=== PATIENT | female | born 1965 | race Caucasian/White ===

== ENCOUNTER → 2016-10-08 | Outpatient (CLI) | payer OTHER | END | disposition home or self-care (01) | LOC: LAB.O 08:19 | PROVIDERS: ATTEND Surgery | DX: R53.83 Other fatigue (principal); R53.81 Other malaise; R12 Heartburn; R06.02 Shortness of breath; R60.9 Edema, unspecified; K64.9 Unspecified hemorrhoids ==

== ENCOUNTER → 2017-01-12 | Outpatient (CLI) | payer OTHER | LOC: LAB.O 07:38 | PROVIDERS: ATTEND Surgery | DX: E56.9 Vitamin deficiency, unspecified (principal); R53.83 Other fatigue; R53.81 Other malaise; R12 Heartburn; R06.02 Shortness of breath; R60.9 Edema, unspecified; F32.9 Major depressive disorder, single episode, unspecified; K64.9 Unspecified hemorrhoids; E78.00 Pure hypercholesterolemia, unspecified; I10 Essential (primary) hypertension; E78.1 Pure hyperglyceridemia; I83.90 Asymptomatic varicose veins of unspecified lower extremity; M54.9 Dorsalgia, unspecified; E11.65 Type 2 diabetes mellitus with hyperglycemia; G47.9 Sleep disorder, unspecified ==

== ENCOUNTER 2017-04-26 11:30 | Inpatient (IN) | payer OTHER ==
--- NOTE | 2017-04-26 11:43 | HP ---
SUPERVISING PHYSICIAN: bAa Galeana M.D. CHIEF COMPLAINT: Worsening dyspnea with upper respiratory infection. HISTORY OF PRESENT ILLNESS: Ms. Borja is a 51 year-old female patient that has been having an upper respiratory infection to include fever, worsening shortness of breath and weakness that started this past Wednesday. She noted that she had a subjective fever of up to 102 yesterday and [facility], and was started on a Z-Sergey, given a Rocephin shot and steroids. She presented to Dr. Craig's office today and was showing worsening of her symptoms with worsening shortness of breath, increasing cough that was productive with purulent sputum, generalized weakness and wheezing. Laboratory studies on admission showed a normal white count of 6, 300. Chemistries showed low potassium 2.9. Liver functions were within normal limits. Kidney function showed creatinine 0.51, BUN 10. Urinalysis was within normal limits. She had an Influenza swab by PCR that was both negative for A and B as well as a Group A Strep by PCR that was negative. Radiographic studies initially included a two view chest per radiology interpretation showed possible developing right lower lobe pneumonia. Given that the patient had failed to respond to any significant treatment plan, including antibiotics and steroids, after being seen in clinic Dr. Craig requested the patient be admitted to the hospital for ongoing treatment with concerns for developing pneumonia possibly secondary to an underlying viral infection. She is now being directly admitted to the Medical/Surgical floor in stable condition. PAST MEDICAL HISTORY: 1. Hypertension. 2. Psoriasis. PAST SURGICAL HISTORY: 1. Gastric sleeve in July 2016 with an 80 pound weight loss. 2. Laparoscopic cholecystectomy in 1997. 3. section times 1 in 1996. 4. Hysterectomy in 1998. 5. Bladder suspension in 2006. 6. Appendectomy. 7. Hiatal and inguinal hernias. HOME MEDICATIONS: No chronic medications listed. ALLERGIES: CLOBETASOL AND ATORVASTATIN. FAMILY HISTORY: Positive for renal carcinoma in her father. SOCIAL HISTORY: The patient works for [employer]. She is and lives in [place]. Has 2 children. Denies any alcohol use but was a previous smoker but quit in 2017 prior to her gastric sleeve procedure, was smoking up to a pack a day. REVIEW OF SYSTEMS: CONSTITUTIONAL: Notable for chills, fever and fatigue, but denies any unintentional weight loss. HEENT: Positive for some nasal congestion, nasal drainage, increasing sinus pressure. No ear aches. Mild sore throat. RESPIRATORY: As per History of Present Illness, positive for worsening cough with purulent sputum and increasing shortness of breath and wheezing. CARDIOVASCULAR: Denies any chest pains, palpitations, syncopal episodes. GASTROINTESTINAL: Negative for any constipation, diarrhea, nausea or vomiting. GENITOURINARY: Denies any dysuria, hematuria or other urinary symptoms. NEUROLOGIC: Denies any ataxia, headaches, vision changes or other neurological deficits. PHYSICAL EXAMINATION: VITAL SIGNS: On admission, temperature 98.2, pulse 67, blood pressure 133/83, respirations 16, satting 100% on room air. In the clinic, she was showing temperature initially of 99.4 and has taken some Tylenol with O2 saturations 98 % on room air. She notes that she has had a fever in the last 24 hours up to 102. GENERAL: On admission to the Medical/Surgical floor, the patient appears to be disheveled, ill-appearing, tired and somewhat anxious and tearful, but well developed and well nourished. HEENT: Tympanic membranes are clear bilaterally. Oropharynx was pink and moist without any lesions. NECK: Supple, non-tender with full range of motion. No jugular venous distention. CHEST: Breath sounds were notably decreased on the right with very faint rhonchi heard to the posterolateral aspect on the right with the right being decreased compared to the left, but no obvious wheezing was noted. CARDIOVASCULAR: Regular rate and rhythm without appreciable murmurs, gallops, or rubs. ABDOMEN: Soft, non-tender. Positive bowel sounds. EXTREMITIES: No clubbing, cyanosis or edema. NEUROLOGIC: She was alert and oriented times three. Cranial nerves II-XII are grossly intact with facial features being symmetrical. Extraocular movements are within normal limits. No notable nystagmus. LABORATORY STUDIES: CBC of 6,000 with white count 6,300, hemoglobin 14.5, hematocrit 42.9, platelet count 147,000. Differential showed to be without a left shift. Chemistries showed a low potassium of 2.9, otherwise electrolytes were within normal limits. BUN is 10, creatinine 0.51, glucose 81, lactic acid initially was 1.5, magnesium level was 1.9. Liver functions showed to be within normal limits. Urinalysis showed to be within normal limits. MICROBIOLOGY: She had a Group A Strep rapid screen that was negative. She also had an Influenza A and B by PCR that was both negative. Blood cultures are pending. Sputum culture is pending. RADIOLOGY: Two view chest in the clinic prior to admission awaiting further evaluation by Radiology per my review shows possibly some basilar consolidation more so on the right than the left with concerns for developing right sided pneumonia. ASSESSMENT: 1. Electrolyte imbalance to include hypokalemia, moderate, requiring IV replacement. 2. Acute bronchitis with concern for community acquired pneumonia on the right lower lobe. Failed outpatient treatment regimen 3. Moderate dehydration requiring IV fluid replacement. PLAN: The patient is now going to be directly admitted to the Medical/Surgical floor for treatment of community-acquired pneumonia. She will be initiated on antibiotic therapy with Rocephin and azithromycin. She has not shown any significant wheezing or distress. I will hold off on the steroids at this point. She will be on aggressive pulmonary hygiene with q.i.d. DuoNeb treatments. In regards to her potassium, will plan to replace it with some IV potassium initially with 10 mEq to be followed-up with ongoing IV maintenance fluid with D5 normal saline with 40 of potassium to run at 80 an hour. Will anticipate her length of stay to be at least 2 to 3 days. Until clinically stable, will continue to monitor and treat appropriately. Will again also await a sputum culture to further target antibiotic therapy and plan to repeat laboratory studies and x-rays in the morning. Once stable clinically, the patient will be discharged to have close clinical followup with Dr. Craig, her primary care provider. #[id number] #[id number] [facility]
[2017-04-26] MEDS ORDERED: SODIUM CHLORIDE 0.9% (FLUSH) 10 ML SYG IV PRN (11:55)
[2017-04-26] MEDS ORDERED: ALBUTEROL SULFATE 2.5 MG/3 ML VIAL NEB PRN (11:55)
[2017-04-26] MEDS ORDERED: AZITHROMYCIN IV 500 MG in SODIUM CHLORIDE 0.9% 250ML 250 ML IVPB SCH (12:00)
[2017-04-26] MEDS ORDERED: SODIUM CHLORIDE 0.9% 1000ML 1,000 ML IVS ONE (12:00)
[2017-04-26] MEDS ORDERED: IV SET AND CAP CHANGE INJ INJ SCH (12:00)
[2017-04-26] MEDS: IPRATROPIUM/ALBUTEROL 3 ML VIAL INH SCH ×3 (12:12→20:27)
[2017-04-26] MEDS ORDERED: cefTRIAXone SODIUM 1 GM VIAL ONE ×2 (12:28→20:23)
[2017-04-26] MEDS ORDERED: SODIUM CHL 0.9% 50ML MIN-BAG+ 50 ML IVPB ONE ×2 (12:28→20:23)
[2017-04-26] MEDS: cefTRIAXone SODIUM 1 GM in SODIUM CHL 0.9% 50ML MIN-BAG+ 50 ML IVPB SCH (13:00)
[2017-04-26] MEDS: ACETAMINOPHEN 325 MG TAB PO PRN ×2 (13:10→21:41)
[2017-04-26] MEDS: SODIUM CHLORIDE 0.9% (FLUSH) 10 ML SYG IV SCH ×2 (13:47→20:42)
[2017-04-26] MEDS ORDERED: AZITHROMYCIN IV 500 MG VIAL IVPB ONE (13:48)
[2017-04-26] MEDS ORDERED: SODIUM CHLORIDE 0.9% 250ML 250 ML ONE (13:48)
[2017-04-26] MEDS ORDERED: POTASSIUM CHLORIDE IVPB ONE (13:49)
[2017-04-26] MEDS ORDERED: SODIUM CHLORIDE 0.9% IVPB ONE (13:49)
[2017-04-26] MEDS ORDERED: KETOROLAC TROMETHAMINE INJ 30 MG/ML VIAL IV ONE (13:52)
[2017-04-26] MEDS: OSELTAMIVIR 75 MG CAP PO SCH ×2 (13:54→20:41)
--- NOTE | 2017-04-26 13:54 | PCM.CORE ---
Physician DVT/VTE - Nurse DVT Assessment & Total Each Risk Factor Represents 1 Point: Age 41-60, Medical PT at Bed Rest Each Risk Factor is 1 Point: Serious Lung disease (pnemonia <1month, COPD, emphysema,etc) DVT Assessment Score: 3 - 3-4 High Risk Treatments: Early Ambulation *, Sequential Compression Device Pharmacological: Enoxaparin 40 mg SQ Daily
[2017-04-26] MEDS ORDERED: POTASSIUM CHLORIDE 10mEq 5ML VIAL ONE (14:10)
[2017-04-26] MEDS ORDERED: SODIUM CHLORIDE 0.9% 100ML 100 ML IVPB ONE (14:10)
[2017-04-26] MEDS: ENOXAPARIN SODIUM 40 MG/0.4 ML SYG SUBCU SCH (14:19)
[2017-04-26] MEDS: AZITHROMYCIN IV 500 MG in SODIUM CHLORIDE 0.9% 250ML 250 ML IVPB SCH (15:28)
[2017-04-26] MEDS: KCL 40 MEQ/D5 1/2NS 1,000 ML IVS PRN (18:16)
[2017-04-27] MEDS: cefTRIAXone SODIUM 1 GM in SODIUM CHL 0.9% 50ML MIN-BAG+ 50 ML IVPB SCH ×2 (00:06→12:45)
[2017-04-27] MEDS: ACETAMINOPHEN 325 MG TAB PO PRN (05:40)
[2017-04-27] MEDS: BENZOCAINE-MENTH LOZ (CEPACOL) 1 EA LOZ MT PRN ×2 (05:44→16:29)
[2017-04-27] MEDS: KCL 40 MEQ/D5 1/2NS 1,000 ML IVS PRN ×2 (05:49→22:27)
[2017-04-27] MEDS: PANTOPRAZOLE SODIUM IV 40 MG VIAL IV SCH (06:22)
--- NOTE | 2017-04-27 07:08 | RAD ---
EXAM: Two view chest. INDICATION: Pneumonia. COMPARISON: Chest x-ray: None. FINDINGS: Cardiac silhouette: Unremarkable. Sylvia: Mild right peribronchial thickening Lobar consolidation: None. Pleural effusion: None. Pneumothorax: None. Other: None. Bones: Unremarkable. Other: None. IMPRESSION: Mild right peribronchial thickening Electronically signed by: Alphonse Tran MD 04/27/2017 7:07 AM [facility] Workstation: [id number]
[2017-04-27] MEDS ORDERED: SODIUM CHLORIDE 0.9% 250ML 250 ML ONE (07:34)
[2017-04-27] MEDS ORDERED: SODIUM CHL 0.9% 50ML MIN-BAG+ 50 ML IVPB ONE ×2 (07:34→20:16)
[2017-04-27] MEDS ORDERED: cefTRIAXone SODIUM 1 GM VIAL ONE ×2 (07:34→20:16)
[2017-04-27] MEDS ORDERED: AZITHROMYCIN IV 500 MG VIAL IVPB ONE (07:35)
[2017-04-27] MEDS: PROMETHAZINE W/CODEINE SYR 5 ML UD PO PRN ×3 (08:36→21:13)
[2017-04-27] MEDS: SODIUM CHLORIDE 0.9% (FLUSH) 10 ML SYG IV SCH ×2 (08:37→20:35)
[2017-04-27] MEDS: OSELTAMIVIR 75 MG CAP PO SCH ×2 (08:37→20:34)
[2017-04-27] MEDS: IPRATROPIUM/ALBUTEROL 3 ML VIAL INH SCH ×4 (08:50→21:27)
[2017-04-27] MEDS ORDERED: SODIUM CHLORIDE 0.9% 1000ML 1,000 ML IVS ONE (09:05)
--- NOTE | 2017-04-27 09:52 | PN ---
SUPERVISING PHYSICIAN: Aba Galeana MD DATE: 04/27/17 SUBJECTIVE: The patient notes that she feels worse today than she did when she was admitted. She noted she is now having some chest tightness, not fully chest pain per her description, more of a tightness. She continues to have dry cough, but remains afebrile. OBJECTIVE: VITAL SIGNS: Temperature 96.3. Pulse 50. Blood pressure 136/93. Respirations 18. Saturation 98% on room air. I&Os show positive balance of 1889 with 2865 in, 975 out. Weight 59.4 kg. CHEST: Lungs are diminished bilaterally towards the bases with some notable rhonchi on the right side, more lateral posterior aspect compared to the left with the left being fairly clear. ABDOMEN: Soft, nontender. Positive bowel sounds. EXTREMITIES: No cyanosis, clubbing or edema. NEUROLOGIC: Alert and oriented times three. LABORATORY: CBC this morning shows normal white count of 5,200. Differential does show a left shift with 8% bands. Chemistries show normal electrolytes with potassium 3.7, BUN 8, creatinine 0.42, calcium 8.4. MICROBIOLOGY: Blood cultures remain negative. Strep screen was negative. Flu swabs are negative. Sputum culture is still pending. RADIOLOGY: Chest x-ray per radiologic interpretation this morning of a two- view chest shows mid right peribronchial thickening. ASSESSMENT: 1. Acute bronchitis with community acquired pneumonia, right middle and right lower lobe with normal white count, but a left shift with increased bands. 2. Chest pain requiring further workup to rule out acute ischemic myocardial event. 3. Electrolyte imbalance on admission with hypokalemia, showing improvement with IV fluids. 4. Moderate dehydration, improving with IV fluids. PLAN: The patient will be continued on respiratory hygiene and parenteral antibiotic to include Rocephin and azithromycin. She is still unable to produce a sputum and it continues to look dehydrated. Therefore, we will give her a bolus of saline and increase her IV fluids for 12 hours and close monitoring. We will anticipate at least another 24 hour requirement for parenteral antibiotics. We will repeat laboratory studies in the morning as well as chest x-ray. We will also do cardiac enzymes q.6h. for 3 sets as well as EKGs. Anticipate discharge later tomorrow or possibly . Until then , we will continue to monitor the patient closely and treat appropriately. #[id number] [facility]
[2017-04-27] MEDS: ENOXAPARIN SODIUM 40 MG/0.4 ML SYG SUBCU SCH (14:23)
[2017-04-27] MEDS: AZITHROMYCIN IV 500 MG in SODIUM CHLORIDE 0.9% 250ML 250 ML IVPB SCH (15:43)
[2017-04-27] MEDS: NYSTATIN SUSPENSION 5 ML UD MT SCH ×2 (16:43→20:34)
[2017-04-27] MEDS ORDERED: ALPRAZolam 0.25 MG TAB PO ONE (20:40)
[2017-04-27] MEDS ORDERED: TEMAZEPAM 15 MG CAP PO PRN (20:41)
[2017-04-28] MEDS: cefTRIAXone SODIUM 1 GM in SODIUM CHL 0.9% 50ML MIN-BAG+ 50 ML IVPB SCH ×3 (00:07→23:50)
[2017-04-28] MEDS: BENZOCAINE-MENTH LOZ (CEPACOL) 1 EA LOZ MT PRN (02:40)
[2017-04-28] MEDS: PANTOPRAZOLE SODIUM IV 40 MG VIAL IV SCH (06:16)
[2017-04-28] MEDS: ACETAMINOPHEN 325 MG TAB PO PRN (06:35)
[2017-04-28] MEDS: KCL 40 MEQ/D5 1/2NS 1,000 ML IVS PRN ×3 (06:39→23:51)
--- NOTE | 2017-04-28 06:59 | RAD ---
EXAM: Two view chest. INDICATION: Pneumonia. COMPARISON: Chest x-ray: 04/27/2017. FINDINGS: Cardiac silhouette: Unremarkable. Sylvia: Right peribronchial thickening Lobar consolidation: None. Pleural effusion: None. Pneumothorax: None. Other: None. Bones: Unremarkable. Other: None. IMPRESSION: Right peribronchial thickening Electronically signed by: Alphonse Tran MD 04/28/2017 6:58 AM [employer] Workstation: [id number]
[2017-04-28] MEDS: NYSTATIN SUSPENSION 5 ML UD MT SCH ×4 (08:27→21:29)
[2017-04-28] MEDS: OSELTAMIVIR 75 MG CAP PO SCH ×2 (08:27→21:29)
[2017-04-28] MEDS: SODIUM CHLORIDE 0.9% (FLUSH) 10 ML SYG IV SCH ×2 (08:27→21:32)
[2017-04-28] MEDS: IPRATROPIUM/ALBUTEROL 3 ML VIAL INH SCH ×4 (08:52→20:59)
[2017-04-28] MEDS ORDERED: CYANOCOBALAMIN INJ 1,000 MCG/ML INJ IM ONE (09:34)
[2017-04-28] MEDS: KETOROLAC TROMETHAMINE INJ 30 MG/ML VIAL IV PRN (10:17)
--- NOTE | 2017-04-28 11:19 | PN ---
SUPERVISING PHYSICIAN: Aba Galeana MD DATE: 04/28/17 SUBJECTIVE: The patient was feeling better earlier this morning, but at this time she is very fatigued and tired. She also just says she does not feel good. She has no complaints of chest pain, nausea, vomiting or shortness of breath. She has also been anxious and does not quite know why, but suspects it is from her being sick for so long. OBJECTIVE: VITAL SIGNS: Afebrile. Heart rate 57. Blood pressure 112/71. Respiratory rate 18. O2 saturation 97% on room air. RESPIRATORY: Essentially clear to auscultation bilaterally. There are some diminished breath sounds in the right lower lobes, but very mild. CARDIAC: Regular rate and rhythm. GASTROINTESTINAL: Abdomen is soft, nondistended, nontender. Bowel sounds are positive. EXTREMITIES: No cyanosis, clubbing or edema. NEUROLOGIC: Awake, alert and oriented times three. LABORATORY: WBC 5.1, hemoglobin 13.8, hematocrit 41.2. Serial cardiac enzymes done overnight have all been negative. There were no chemistries ordered for today. Vitamin B12 level is pending. Group A rapid strep is negative. Preliminary blood cultures show no growth after 24 hours. Chest x-ray shows right peribronchial thickening. All other labs and films have been reviewed via the EMR. ASSESSMENT: 1. Acute bronchitis with community acquired pneumonia, right middle and right lower lobe with normal white count, but a left shift with increased bands, improving. 2. Chest pain with negative serial cardiac enzymes. 3. Electrolyte imbalance on admission with hypokalemia, now normalized. 4. Dehydration, improved. 5. Fatigue, most likely related to her illness. PLAN: We will continue present supportive care. She did have a gastric bypass , so I have ordered a B12 level and given her a B12 injection. I have also given her cough drops and she may need some additional Xanax due to the increased anxiety. I discussed [facility] an [facility] and she said she would discuss that with Dr. Craig. Initially thought she might be discharged today, but because she is just not feeling well, we will give her an additional day of IV antibiotics and hopefully discharge tomorrow. She may need to have routine cyanocobalamin injections depending on her B12 level. Otherwise, I have encouraged good pulmonary hygiene. We will continue to monitor the patient closely and follow as needed. Dr. Galeana is the collaborating physician and available for consultation. #[id number] [facility]
[2017-04-28] MEDS ORDERED: SODIUM CHL 0.9% 50ML MIN-BAG+ 50 ML IVPB ONE ×2 (11:46→20:23)
[2017-04-28] MEDS ORDERED: cefTRIAXone SODIUM 1 GM VIAL ONE ×2 (11:46→20:23)
[2017-04-28] MEDS: ALPRAZolam 0.25 MG TAB PO PRN ×2 (11:57→17:47)
[2017-04-28] MEDS: ENOXAPARIN SODIUM 40 MG/0.4 ML SYG SUBCU SCH (14:58)
[2017-04-28] MEDS ORDERED: SODIUM CHLORIDE 0.9% 250ML 250 ML ONE (15:05)
[2017-04-28] MEDS ORDERED: AZITHROMYCIN IV 500 MG VIAL IVPB ONE (15:06)
[2017-04-28] MEDS: AZITHROMYCIN IV 500 MG in SODIUM CHLORIDE 0.9% 250ML 250 ML IVPB SCH (15:29)
[2017-04-28] MEDS: PROMETHAZINE W/CODEINE SYR 5 ML UD PO PRN (19:57)
[2017-04-29] MEDS: PANTOPRAZOLE SODIUM IV 40 MG VIAL IV SCH (06:05)
[2017-04-29] MEDS: IPRATROPIUM/ALBUTEROL 3 ML VIAL INH SCH (07:31)
[2017-04-29] MEDS ORDERED: SODIUM CHL 0.9% 50ML MIN-BAG+ 50 ML IVPB ONE (08:10)
[2017-04-29] MEDS ORDERED: cefTRIAXone SODIUM 1 GM VIAL ONE (08:11)
[2017-04-29] MEDS: NYSTATIN SUSPENSION 5 ML UD MT SCH (09:38)
[2017-04-29] MEDS: SODIUM CHLORIDE 0.9% (FLUSH) 10 ML SYG IV SCH (09:38)
[2017-04-29] MEDS: OSELTAMIVIR 75 MG CAP PO SCH (09:38)
[2017-04-29] MEDS: cefTRIAXone SODIUM 1 GM in SODIUM CHL 0.9% 50ML MIN-BAG+ 50 ML IVPB SCH (09:40)
[2017-04-29] MEDS: ACETAMINOPHEN 325 MG TAB PO PRN (09:41)
[2017-04-29] MEDS: KETOROLAC TROMETHAMINE INJ 30 MG/ML VIAL IV PRN (09:51)
[2017-04-29 10:18] VITALS: BP 123/87; TEMP 98.4; O2SAT 98
--- NOTE | 2017-04-29 11:37 | DS ---
SUPERVISING PHYSICIAN: Aba Galeana MD DISCHARGE DIAGNOSIS: 1. Acute bronchitis with community acquired pneumonia, right middle and right lower lobe with normal white count, but a left shift with increased bands, improved. 2. Chest pain with negative serial cardiac enzymes. 3. Electrolyte imbalance on admission with hypokalemia, now normalized. 4. Dehydration, improved. 5. Anxiety, being treated with Xanax in the hospital with improvement. 6. Fatigue, most likely related to her illness, improved. HISTORY OF PRESENT ILLNESS: This is a 51 year-old female patient that had an upper respiratory infection with fever as well as shortness of breath and weakness that started last week. Her fever had gotten up to 102. She was seen in the walk-in clinic and was started on a Z-Sergey and given a Rocephin shot and steroids. She later presented to Dr. Craig's office, her primary care physician , and showed a worsening of her symptoms. She had worsening shortness of breath as well as well as wheezing. Laboratory studies on admission showed a normal white count of 6,300. Chemistries showed low potassium 2.9. Liver functions were within normal limits. Kidney function showed creatinine 0.51, BUN 10. Urinalysis was within normal limits. Influenza swab by PCR that was negative for A and B as well as a Group A Strep was negative. Her two view chest showed developing right lower lobe pneumonia. She was admitted to the hospital due to failed outpatient treatment. HOSPITAL COURSE: She was placed on Rocephin and azithromycin. She was also given aggressive pulmonary hygiene with breathing treatments. Her potassium was replaced. She was given fluids. Her subsequent x-ray showed right peribronchial thickening. Her potassium improved to 3.7. She did have one episode of chest pain and her serial enzymes were negative. She also had several panic type attacks where she became very agitated and anxious. She was given Xanax that improved her anxiety. Her vital signs have been stable. Her oxygen saturations have been in the upper 90s on room air and she will be discharged home. DISCHARGE PLAN: She will be discharged home in stable condition. She is to resume her previous diet and increase activity level as tolerated. I have given her an albuterol inhaler as well as continued her on Tamiflu and azithromycin. She will also have an order of Xanax. She will followup with Dr. Craig on 05/05/17 at 9:45 AM. She is to return to the hospital or call Dr. Craig's office for any further problems or complications. DISCHARGE MEDICATIONS: 1. Alprazolam. 2. Azithromycin. 3. Nystatin. 4. Tamiflu. 5. Albuterol inhaler. Dr. Galeana is the collaborating physician and available for consultation. [facility][id number] [facility]
== END 2017-04-29 10:46 | disposition home or self-care (01) | DRG 195 ==
LOC: MS 11:30
PROVIDERS: ADMIT Nurse Practitioner Family; ATTEND Nurse Practitioner Acute Care
DX: J18.9 Pneumonia, unspecified organism (principal); J20.9 Acute bronchitis, unspecified; R07.9 Chest pain, unspecified; E87.6 Hypokalemia; E86.0 Dehydration; F41.0 Panic disorder [episodic paroxysmal anxiety]; I10 Essential (primary) hypertension; L40.9 Psoriasis, unspecified; Z98.84 Bariatric surgery status; Z88.8 Allergy status to other drugs, medicaments and biological substances; Z87.891 Personal history of nicotine dependence

== ENCOUNTER → 2017-06-09 | Outpatient (CLI) | payer OTHER ==
--- NOTE | 2017-06-09 16:39 | MRI ---
EXAM DESCRIPTION: Brain w/o Contrast: MRI. CLINICAL HISTORY: UNEQUAL PUPILS [id number] COMPARISON: None. TECHNIQUE: Multiplanar, high-field MRI unit, multiple diffusion sequences, multiple conventional sequences without contrast. FINDINGS: Small multiple foci of bright FLAIR and T2-weighted signal in the periventricular white matter , frontal parietal and occipital lobes more right than left. Less involvement of the left parietal and frontal lobe. Abnormalities extend to the vertex bilaterally. Bilateral involvement of subcortical white matter. Not associated with hemorrhage or diffusion restriction. No mass effect.. . Similar signal in the anterior posterior right basal ganglia. These lesions are also well demonstrated on the T2*gradient and T1 images. No hemorrhage, no cerebral edema, no mass-effect. Normal normally configured for patients age signal in the brainstem and cerebellar hemispheres. No hemorrhage, no cerebral edema, no mass-effect. Concordance of the diffusion and non-diffusion sequences with no diffusion restriction. Cortical sulci, ventricles, and other CSF spaces, and the subdural spaces are normally configured for patients age. No effacement or displacement. No midline shift. No extra-axial hemorrhage. Normal flow signal void in the major vessels of the [place], and the venous sinuses. IACs are symmetric bilaterally. Minimal fluid signal in the inferior left mastoid air cells. No mass effect in the bilateral cerebellopontine angles. Pituitary gland occupies most of the sella. Base of the cerebellar tonsils is at the level of the foramen magnum. Unremarkable paranasal sinuses. The bony calvarium is intact. IMPRESSION: 1. 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 Not associated with hemorrhage mass effect or cerebral edema or diffusion restriction. Similar lesions in the right basal ganglia. Differential includes demyelinating process, migraine headaches, early cerebral microvascular disease, vasculitis, or inflammatory process. In utero toxic process less likely. Cannot exclude synchronous vascular malformation in the right basal ganglia. Consider follow-up MRI scan with gadolinium IV contrast. 2. Minimal sinusitis inferior left mastoid air cells. Electronically signed by: Romero Mei MD 06/09/2017 4:37 PM CDT
== END ==
LOC: MRI 07:52
PROVIDERS: ATTEND Family Medicine
DX: H57.00 Unspecified anomaly of pupillary function (principal); R42 Dizziness and giddiness; R51 Headache

== ENCOUNTER → 2017-06-22 | Outpatient (CLI) | payer OTHER ==
--- NOTE | 2017-06-22 15:25 | MRI ---
EXAM DESCRIPTION: Brain w/Contrast CLINICAL HISTORY: TENSION HEADACHE COMPARISON: None. TECHNIQUE: Multiplanar, multiple conventional MRI sequences with gadolinium IV contrast. No adverse reactions. Technical note: Some of the sequences are degraded by patient motion. FINDINGS: The foci of abnormal signal in the bilateral occipital lobes bilateral frontal lobes and parietal lobes and abutting the right basal ganglia seen on the prior study. These lesions do not enhance on the current study. Signal void lesion again noted in the right basal ganglia anteriorly and kathleen radiata of the right frontal lobe and medial aspect of the right temporal lobe. No abnormal enhancement. Normal enhancement in the brainstem and cerebellar hemispheres and the bilateral cerebellopontine angles. Normal enhancement in the pituitary gland and normal enhancement of vascular structures. IMPRESSION: 1. No abnormal enhancement of brain parenchyma, including lesions previously noted on noncontrast brain MRI scan. These lesions could represent inactive inflammatory lesions, in active vasculitis or inactive demyelinating process. Less likely to represent migraine sequela. Large elongated structure extending from the medial right temporal lobe to the frontal horn of the right lateral ventricle also does not enhance with contrast and is unlikely to represent a vascular structure. No enhancing soft tissue mass. Electronically signed by: Romero Mei MD 06/22/2017 3:24 PM CDT
== END | disposition home or self-care (01) ==
LOC: MRI 08:56
PROVIDERS: ATTEND Family Medicine
DX: R94.02 Abnormal brain scan (principal)

== ENCOUNTER → 2017-06-28 | Outpatient (CLI) | payer OTHER ==
--- NOTE | 2017-06-28 09:43 | RAD ---
EXAM DESCRIPTION: Wrist,Left 3 Views CLINICAL HISTORY: 51 years, Female, PAIN IN LEFT WRIST COMPARISON: None FINDINGS: Left wrist 3 x-ray views is negative for fracture or dislocation. Carpal relationships are well-maintained. Distal radius and ulna appear intact. Normal metacarpals. No significant arthritic changes are observed. IMPRESSION: Negative for fracture or dislocation. Electronically signed by: Ronald Camarillo MD 06/28/2017 9:42 AM CDT
== END ==
LOC: RAD 08:18
PROVIDERS: ATTEND Orthopaedic Surgery
DX: M25.532 Pain in left wrist (principal)

== ENCOUNTER → 2017-07-23 | Outpatient (CLI) | payer OTHER | LOC: LAB.O 10:18 | PROVIDERS: ATTEND Surgery | DX: L03.114 Cellulitis of left upper limb (principal) ==

== ENCOUNTER → 2018-02-08 | Outpatient (CLI) | payer OTHER | LOC: LAB.O 15:46 | PROVIDERS: ATTEND Family Medicine | DX: R53.83 Other fatigue (principal); I95.9 Hypotension, unspecified ==

== ENCOUNTER 2019-04-17 09:47 | Emergency (ER) | payer OTHER ==
[2019-04-17] MEDS ORDERED: SODIUM CHLORIDE 0.9% (FLUSH) 10 ML SYG IV PRN (09:56)
[2019-04-17] MEDS ORDERED: SODIUM CHLORIDE 0.9% 1000ML 1,000 ML IVS ONE (09:57)
[2019-04-17] MEDS ORDERED: ONDANSETRON INJ 4 MG/2 ML VIAL IV ONE (09:57)
[2019-04-17 09:59] VITALS: TEMP 98.6
--- NOTE | 2019-04-17 10:00 | ED.PDOC ---
History of Present Illness - General Chief Complaint: GI Problem Stated Complaint: n/v/d for 3 days Time Seen by Provider: 04/17/19 09:56 Source: patient - History of Present Illness Initial Comments: 53 yo female with PMH of HTN, hx of gastric sleeve (2018) who presents with cc of nausea/vomiting/diarrhea. Reports onset 3 days ago, persistent. States frequently running to the bathroom for the past 3 days with sx's - estimates 10- 20 episodes of NBNB emesis & watery diarrhea yesterday and 4 episodes since 6 am today. Tried some Phenergan yesterday with little relief. was ill last week with similar sx's and is now improving. Also reports feeling generally weak and tired. Reports some urinary frequency 3 days ago. Denies any abd pain, fevers/chills, chest pain, cough, dyspnea, sore throat, leg swelling. Reports mild headache and body aches to neck and back. Allergies/Adverse Reactions: Allergies Clobetasol Adverse Reaction (Intermediate, Verified 04/26/17 12:27) Rash Atorvastatin [From Lipitor] Adverse Reaction (Mild, Verified 04/26/17 12:27) Cough Home Medications: Ambulatory Orders ALPRAZolam [Xanax] 0.25 mg PO Q6H PRN #15 tab 04/29/17 Albuterol Inhaler [Ventolin Hfa Inhaler] 2 puff INH Q4H PRN #1 inh 04/29/17 Azithromycin Tab [Zithromax] 250 mg PO QD #2 tab 04/29/17 Nystatin Suspension 5 ml MT QID #40 ud 04/29/17 Oseltamivir Capsule [Tamiflu] 75 mg PO BID #2 cap 04/29/17 Ciprofloxacin HCl [Ciprofloxacin Hydrochlori] 500 mg PO BID 7 Days #14 tab 04/17/19 Ondansetron Odt [Zofran ODT] 8 mg PO Q8H PRN #10 tab 04/17/19 Review of Systems - Review of Systems Review of Systems: 04/17/19 10:00 as per HPI All other Systems: Reviewed and Negative Past Medical History (General) - Patient Medical History Hx Seizures: No Hx Stroke: No Hx Asthma: No Hx of COPD: No Hx Cardiac Disorders: Yes Hx Congestive Heart Failure: No Hx Pacemaker: No Hx Hypertension: Yes - no longer on meds after weight loss surgery Hx Diabetes: Yes - no longer requires medications after weight loss surgery Hx Cancer: No Hx Hepatitis C: No Hx MRSA: No Surgical History: appendectomy, cholecystectomy, Hysterectomy - Vaccination History Hx Tetanus, Diphtheria Vaccination: No Hx Influenza Vaccination: Yes Hx Pneumococcal Vaccination: No - Social History Hx Tobacco Use: No Hx Alcohol Use: Yes - RARE Hx Substance Use: No Hx Substance Use Treatment: No Hx Depression: No Hx Physical Abuse: No Hx Emotional Abuse: No - Female History Patient is a Female of Child Bearing Age (10 -59 yrs old): No Patient : No Family Medical History - Family History Mother Living Status: Still Living Father Living Status: Cause of : renal Cancer Hx Family Cancer: Yes Physical Exam - Physical Exam General Appearance: Alert, No apparent distress Eye Exam: bilateral normal Ears, Nose, Throat: hearing grossly normal, normal ENT inspection, normal pharynx Neck: non-tender, full range of motion, supple, normal inspection Respiratory: lungs clear, normal breath sounds, no respiratory distress Cardiovascular/Chest: normal peripheral pulses, regular rate, rhythm, no edema, no JVD, no murmur Peripheral Pulses: radial,right: 2+, radial,left: 2+ Gastrointestinal/Abdominal: non tender, soft, no organomegaly, abnormal bowel sounds - diminished Extremity: normal range of motion, non-tender, normal inspection, no pedal edema, no calf tenderness 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 Consider also flu vs gastric sleeve complication vs gastritis vs pancreatitis vs infectious colitis vs c diff vs cholangitis vs UTI/pyelo vs other -vitals stable -check labs, flu, UA, lipase -1 L NS bolus, Zofran 4 mg IV 04/17/19 11:11 -Labs reveal WBC 11,300 with 93% segs. UA c/w UTI - 40-50 WBC, 1+ bacteria, +leuk esterase, neg nitrites. CMP unremarkable. Pt has remained stable. Will treat UTI with Cipro 500 mg PO BID x7 days. This should also cover for many infectious colitis causes as well. -dc home in good condition, return warnings discussed at length Aquilino Ayon MD Billing #[id number] 04/17/19 09:56 IV Care:Saline Lock per Protoc QSHIFT Telemetry .ONCE Sodium Chloride 0.9% (Flush) [Saline Flush Syringe] 10 ml IV PRN PRN 04/17/19 10:02 Urine Culture Stat 04/17/19 10:27 STOOL CULTURE Stat 04/18/19 09:00 Pulse Ox Daily Laboratory Results - last 24 hr 04/17/19 04/17/19 04/17/19 09:50 09:50 09:50 WBC 11.3 H RBC 5.00 Hgb 15.4 Hct 46.0 MCV 92.1 MCH 30.8 MCHC 33.4 RDW 13.1 Plt Count 159 MPV 8.8 Absolute Neuts (auto) 10.50 H Absolute Lymphs (auto) 0.40 L Absolute Monos (auto) 0.30 Absolute Eos (auto) 0.10 Absolute Basos (auto) 0.00 Neutrophils % 93.1 H Lymphocytes % 3.2 L Monocytes % 2.3 Eosinophils % 1.1 Basophils % 0.3 Sodium 140 Potassium 4.1 Chloride 107 Carbon Dioxide 23 Anion Gap 14.1 BUN 15 Creatinine 0.58 L BUN/Creatinine Ratio 25.9 H Random Glucose 113 H Serum Osmolality 281.0 Calcium 9.2 Total Bilirubin 0.8 AST 26 ALT 26 Alkaline Phosphatase 64 Serum Total Protein 7.1 Albumin 4.0 Globulin 3.1 Albumin/Globulin Ratio 1.3 Lipase 32 Urine Color Urine Appearance Urine pH Ur Specific [place] Urine Protein Urine Glucose (UA) Urine Ketones Urine Blood Urine Nitrite Urine Bilirubin Urine Urobilinogen Ur Leukocyte Esterase Urine RBC Urine WBC Ur Epithelial Cells Urine Bacteria 04/17/19 10:02 WBC RBC Hgb Hct MCV MCH MCHC RDW Plt Count MPV Absolute Neuts (auto) Absolute Lymphs (auto) Absolute Monos (auto) Absolute Eos (auto) Absolute Basos (auto) Neutrophils % Lymphocytes % Monocytes % Eosinophils % Basophils % Sodium Potassium Chloride Carbon Dioxide Anion Gap BUN Creatinine BUN/Creatinine Ratio Random Glucose Serum Osmolality Calcium Total Bilirubin AST ALT Alkaline Phosphatase Serum Total Protein Albumin Globulin Albumin/Globulin Ratio Lipase Urine Color Yellow Urine Appearance Sl cloudy Urine pH 5.0 Ur Specific [place] >= 1.030 Urine Protein Negative Urine Glucose (UA) Negative Urine Ketones Negative Urine Blood Negative Urine Nitrite Negative Urine Bilirubin Negative Urine Urobilinogen 0.2 Ur Leukocyte Esterase Moderate H Urine RBC 0-1 Urine WBC 40-50 H Ur Epithelial Cells 1-3 Urine Bacteria 1+ Departure - Departure Clinical Impression: Gastroenteritis Urinary tract infection Qualifiers: Urinary tract infection type: acute cystitis Hematuria presence: without hematuria Qualified Code(s): N30.00 - Acute cystitis without hematuria Time of Disposition: 11:13 Disposition: Discharge to Home or Self Care Condition: Fair Departure Forms: ED Discharge - Pt. Copy, ED Discharge - Work Release, Patient Portal Self Enrollment Instructions: Urinary Tract Infection, Adult (DC), Viral Gastroenteritis, Adult (DC) Diet: resume usual diet Referrals: Alvarez Craig MD [Primary Care Provider] - 1-2 Weeks Prescriptions: Ciprofloxacin HCl [Ciprofloxacin Hydrochlori] 500 mg PO BID 7 Days #14 tab Ondansetron Odt [Zofran ODT] 8 mg PO Q8H PRN #10 tab PRN Reason: Nausea Home Medications: Ambulatory Orders ALPRAZolam [Xanax] 0.25 mg PO Q6H PRN #15 tab 04/29/17 Albuterol Inhaler [Ventolin Hfa Inhaler] 2 puff INH Q4H PRN #1 inh 04/29/17 Azithromycin Tab [Zithromax] 250 mg PO QD #2 tab 04/29/17 Nystatin Suspension 5 ml MT QID #40 ud 04/29/17 Oseltamivir Capsule [Tamiflu] 75 mg PO BID #2 cap 04/29/17 Ciprofloxacin HCl [Ciprofloxacin Hydrochlori] 500 mg PO BID 7 Days #14 tab 04/17/19 Ondansetron Odt [Zofran ODT] 8 mg PO Q8H PRN #10 tab 04/17/19 Additional Instructions: Remain well-hydrated and slowly advance diet and activity level as able. Take the antibiotics as directed and finish the full course. Return if worsening or other concerning symptoms develop such as abdominal pain, bloody stools, etc... Follow up in 1-2 weeks with your primary care doctor.
[2019-04-17] MEDS ORDERED: CIPROFLOXACIN 500 MG TAB PO ONE (11:10)
[2019-04-17 11:13] VITALS: BP 131/80; O2SAT 94
[2019-04-17] MEDS ORDERED: PROMETHAZINE HCL INJ 12.5 MG in SODIUM CHLORIDE 0.9% 50ML 50 ML IVPB ONE (11:18)
[2019-04-17] MEDS ORDERED: KETOROLAC TROMETHAMINE INJ 30 MG/ML VIAL IV ONE (11:18)
[2019-04-17] MEDS ORDERED: SODIUM CHLORIDE 0.9% 50ML 50 ML ONE (11:24)
[2019-04-17] MEDS ORDERED: PROMETHAZINE HCL INJ 25 MG/ML VIAL ONE (11:24)
== END 2019-04-17 11:35 | disposition home or self-care (01) ==
LOC: ER 09:47
DX: K52.9 Noninfective gastroenteritis and colitis, unspecified (principal); N30.00 Acute cystitis without hematuria; I51.9 Heart disease, unspecified; Z90.49 Acquired absence of other specified parts of digestive tract; Z98.84 Bariatric surgery status; Z88.8 Allergy status to other drugs, medicaments and biological substances; Z79.899 Other long term (current) drug therapy
CPT/HCPCS: 36415; 80053; 81001; 83690; 85025; 87086; 87502; A4216; J1885; J2405; J2550; J7030